=== PATIENT | male | born 1995 | race Caucasian/White ===

== ENCOUNTER 2016-07-18 17:32 | Emergency (ER) | payer OTHER ==
[2016-07-18 20:59] VITALS: BP 129/76
== END 2016-07-18 20:59 | disposition short-term general hospital (02) ==
LOC: ED 17:32
DX: S01.112A Laceration without foreign body of left eyelid and periocular area, initial encounter (principal); S02.91XA Unspecified fracture of skull, initial encounter for closed fracture; X58.XXXA Exposure to other specified factors, initial encounter; Y93.89 Activity, other specified; Y99.8 Other external cause status; Y92.89 Other specified places as the place of occurrence of the external cause
CPT/HCPCS: 90715; J0690; J1885; J2001; J2405; J3490